=== PATIENT | female | born 1975 | race Caucasian/White ===

== ENCOUNTER 2022-09-19 16:21 | Emergency (ER) | payer OTHER ==
[~2022-09-19] VITALS: Ht 170.2 cm; Wt 99.8 kg
[2022-09-19 16:25] VITALS: BP_SYST 206
--- NOTE | 2022-09-19 16:25 | NUR ---
Patient triaged and placed in waiting room. VSS and patient appears in no acute distress at this time. Accompanied by SELF, awaiting available bed, and MD notified of need for MSE.
--- NOTE | 2022-09-19 17:00 | NUR ---
ER DR. COOK EXAMINING PT
[2022-09-19] MEDS ORDERED: KETOROLAC TROMETHAMINE 30 MG VIAL IVP ONE (17:15)
[2022-09-19] MEDS ORDERED: ONDANSETRON HCL 4 MG/2 ML VIAL IVP ONE (17:15)
[2022-09-19 18:49] LABS: BASOPHILS # (AUTO) 0.1 K/uL (0.0-0.2); BASOPHILS % (AUTO) 0.4 % (0.0-2.0); EOSINOPHILS % (AUTO) 0.1 % (0.0-4.0); HEMATOCRIT 42.9 % (36-48); HEMOGLOBIN 14.8 g/dL (12.0-16.0); LYMPHOCYTES # (AUTO) 0.9 K/uL (1.0-5.5); LYMPHOCYTES % (AUTO) 6.8 % (20.5-51.5); MEAN CORPUSCULAR HEMOGLOBIN 31 pg (27-31); MEAN CORPUSCULAR HGB CONC 35 % (32-36); MEAN CORPUSCULAR VOLUME 90 fL (79.0-98.0); MONOCYTES # (AUTO) 0.3 K/uL (0.0-1.0); MONOCYTES % (AUTO) 2.7 % (1.7-9.3); NEUTROPHILS # (AUTO) 11.7 K/uL (1.8-7.7); PLATELET COUNT (AUTO) 231 K/uL (130-430); RED BLOOD CELL COUNT(AUTO) 4.78 MIL/uL (4.2-6.2); RED CELL DISTRIBUTION WIDTH 13.2 % (9.0-15.0)
[2022-09-19 19:28] LABS: CALCIUM 9.4 mg/dL (8.4-11.0); CREATININE 0.93 mg/dL (0.55-1.30)
[2022-09-19 19:32] LABS: ALBUMIN 4.6 g/dL (3.4-4.8); TOTAL BILIRUBIN 0.9 mg/dL (0.0-1.0)
[2022-09-19] MEDS ORDERED: MORPHINE 4 MG INJ. 4 MG/ML VIAL IVP ONE (22:30)
[2022-09-19 23:16] LABS: LIPASE 48 U/L (73-393)
--- NOTE | 2022-09-20 00:32 | NUR ---
pt ambulatory from home with c/o abdominal pain, mainly to epigastric region x1 day. Describes pain as constant, non radiating, burning sensation. (+) N/V. (-) Fever, urinary symptoms. Arrived to [place] in stable cond. Breathing adequately on RA.
--- NOTE | 2022-09-20 00:44 | NUR ---
# 22 gauge angiocath placed to R AC. Use of asceptic technique. Opsite placed over site. Blood return noted. Flushed with 10 cc of normal saline. No evidence of infiltration noted. Patient tolerated well.
[2022-09-20] MEDS ORDERED: ONDANSETRON HCL 4 MG/2 ML VIAL ONE (00:48)
[2022-09-20] MEDS ORDERED: MORPHINE 4 MG INJ. 4 MG/ML VIAL ONE (00:49)
--- NOTE | 2022-09-20 01:16 | NUR ---
Written consent obtained from pt for CT abd with contrast.
[2022-09-20] MEDS ORDERED: MORPHINE 4 MG INJ. 4 MG/ML VIAL IVP ONE ×2 (01:30→09:15)
--- NOTE | 2022-09-20 02:15 | NUR ---
Patient transported to radiology via [facility] for imaging.
[2022-09-20] MEDS ORDERED: ONDANSETRON HCL 4 MG/2 ML VIAL IVP ONE (03:30)
[2022-09-20] MEDS ORDERED: NACL 0.9% 1,000 ML IV ONE (03:30)
[2022-09-20] MEDS ORDERED: HYDROmorphone 1 MG/ML INJ. CARTRIDGE IVP ONE (03:45)
[2022-09-20 03:53] LABS: BILIRUBIN,URINE NEGATIVE (NEGATIVE); BLOOD, URINE 1+ (NEGATIVE); CLARITY/URINE CLEAR (CLEAR); COLOR,URINE YELLOW (YELLOW); GLUCOSE,URINE 3+ (NEGATIVE); KETONES,URINE 3+ (NEGATIVE); LEUKOCYTE ESTERASE ,URINE NEGATIVE (NEGATIVE); NITRITE, URINE NEGATIVE (NEGATIVE); PROTEIN URINE 2+ (NEGATIVE); UROBILINOGEN,URINE 0.2 (0.2-1.0)
[2022-09-20 04:14] LABS: URINE SULFO SALICYLIC ACID NEGATIVE (NEGATIVE)
[2022-09-20 04:15] LABS: BACTERIA,URINE FEW /HPF (None Seen); RBC,URINE 0-3 /HPF (0-3)
[2022-09-20 04:17] LABS: MUCUS,URINE None Seen /LPF (None Seen); YEAST,URINE None Seen /HPF (None Seen)
--- NOTE | 2022-09-20 04:19 | NUR ---
PT PLACENT ON 2LPM O2 AFTER MONITOR READ O2 SAT OF 92%, AFTER O2 ADMINISTERED O2 SAT RETURNED TO NORMAL LIMITS Addendum: 09/20/22 at 0442 by [id number] Pt being monitored and placed on O2 for comfort. MD Almonte made aware.
--- NOTE | 2022-09-20 04:30 | NUR ---
MD Almonte made aware of pt's elevated bp. NNO. Will continue to monitor at this time.
--- NOTE | 2022-09-20 04:40 | NUR ---
Pt taken to US for imaging.
[2022-09-20] MEDS ORDERED: KETOROLAC TROMETHAMINE 30 MG VIAL IVP ONE (05:15)
[2022-09-20] MEDS ORDERED: METOCLOPRAMIDE HCL 10 MG/2 ML VIAL IVP ONE (05:45)
[2022-09-20] MEDS ORDERED: METOCLOPRAMIDE HCL 10 MG/2 ML VIAL ONE (08:41)
[2022-09-20] MEDS ORDERED: cloNIDine HCL 0.1 MG TABLET PO ONE (09:15)
[2022-09-20] MEDS ORDERED: PROCHLORPERAZINE EDISYLATE 10 MG/2 ML VIAL IVP ONE (09:15)
--- NOTE | 2022-09-20 13:37 | NUR ---
Admit bed requested Patient will be admitted to care of . Admitted to M/S unit. Diagnosis ACUTE CHOLECYSTITIS Inpatient (Yes or No) Y Observation (Yes or No) N Orientation concerns or request close to nursing station (Yes or No) N Covid Status NEG On vent or bipap NO Isolation requirements NO Needs a sitter NO From Home (Yes or if No enter name of facility) YES Requires Dialysis (Yes or No) NO Med Rec Completed (Yes of No) YES
--- NOTE | 2022-09-20 14:46 | NUR ---
TRANSFER INFO [facility] RM: [id number] ACCEPTING: [facility] PERDUE REPORT: [phone] BLS ETA 1600 SPOKE TO YOSELIN
--- NOTE | 2022-09-20 15:45 | NUR ---
Patient to be transferred to [facility]. Is being transferred due to higher level of care. Receiving facility has accepting physician and available space. ER physician has signed transfer form. Patient or responsible libertarian has agreed to transfer and signed form. Patient belongings inventoried and will be sent with patient. Copy of nursing notes, lab reports, EKG, Physicians Orders and X-rays to be sent with patient. Report called to MIKEL VALDEZ at receiving facility. Receiving physician is . A ambulance service has been called for transfer. ETA is 30 MIN.
[2022-09-20 21:17] VITALS: BP_SYST 145
== END 2022-09-20 15:45 | disposition short-term general hospital (02) ==
LOC: SED 16:21 → SMU 09-20 13:38 → UNDOADMIN 09-20 13:38 → SED 09-20 15:45
DX: K80.50 Calculus of bile duct without cholangitis or cholecystitis without obstruction (principal); Z20.822 Contact with and (suspected) exposure to COVID-19
CPT/HCPCS: 99285; 71045; 87426; 80053; 82962; 83690; 85025; 84484; 36415; 93005; 81003; 87804 ×2; 81000; 74177; 96374; 96375; 76705; 96361; 76376; 96376; J1885; J2765; J2405; J0780; J1170; J2270; Q9967; J7030